=== PATIENT | female | born 2005 | race Two or more races ===

== ENCOUNTER 2024-12-27 23:01 | Emergency (ER) | payer OTHER ==
[~2024-12-27] VITALS: Ht 180.3 cm; Wt 44.5 kg
[~2024-12-27 23:01] MED LIST: KEPPRA500 MG; MACRODANTIN100 M1 PO; ONDANSETRON ODT8 MG PO; PRENATAL
[2024-12-27 23:33] VITALS: BP 104/64; O2SAT 100
[2024-12-27] MEDS ORDERED: PRENATABS RX T1 EACH (23:35)
[2024-12-27] MEDS ORDERED: ACETAMINOPHEN 500 MG GEL..CAP PO STA (23:58)
[2024-12-28] MEDS ORDERED: RINGERS SOLUTION,LACTATED 1,000 ML IV ONE (00:45)
[2024-12-28 01:53] LABS: BASO % 0.3 % (0.1-1.2); EOS # 0.01 (0.04-0.54); EOS % 0.2 % (0.7-7.0); LYMPH # 1.75 (1.18-3.74); LYMPH % 28.9 % (19.3-53.1); MEAN PLATELET VOLUME 9.50 fl (9.4-12.4); MONO # 0.34 (0.24-0.82); MONO % 5.6 % (4.7-12.5); NEUT # 3.93 (1.56-6.13); NEUT % 64.8 % (34.0-71.1); RED CELL DISTRIBUTION WIDTH 12.5 % (11.6-14.4)
[2024-12-28 02:03] LABS: INR 1.09
[2024-12-28 02:25] LABS: BUN CREA RATIO 11.0 (7.0-25.0); CREATININE SERUM 0.62 mg/dL (0.55-1.02); GFR 121.51; GLUCOSE FASTING 98.0 mg/dL (65-100); OSMOLALITY SERUM 281.0 MOSM/KG (275-295)
[2024-12-28 02:41] LABS: HCG QUANTITATIVE 47285.0 mUI/mL (1-3)
[2024-12-28 03:47] LABS: URINE APPEARANCE Cloudy; URINE BILIRRUBIN Negative (NEGATIVE); URINE BLOOD Negative; URINE COLOR Yellow; URINE GLUCOSE Negative (NEGATIVE); URINE KETONE Negative (NEGATIVE); URINE LEUKOCYTE Large; URINE NITRATE Negative; URINE PROTEIN Trace (NEGATIVE); URINE UROBILINOGEN 0.2 E.U./dl
[2024-12-28 03:50] LABS: URINE BACTERIA 6681.4 uL (0.0-1933); URINE EPITHELIAL CELLS 116.4 uL (0.0-38.8); URINE WBC 247.5 uL (0.0-23.2)
[2024-12-28 04:35] LABS: URINE CAST 0.58 uL (0.0-1.40); URINE MUCUS MODERATE; URINE RBC 1.9 uL (0.0-20.8)
[2024-12-28 04:36] LABS: URINE YEAST FEW /hpf
[2024-12-28] MEDS ORDERED: CEFTRIAXONE SODIUM 1,000 MG VIAL IV STA (05:44)
[2024-12-28] MEDS ORDERED: CEPHALEXIN500 MG PO (05:54)
== END 2024-12-28 06:12 ==
LOC: ER
PROVIDERS: General Practice
DX: O20.8 Other hemorrhage in early pregnancy (principal); Z3A.15 15 weeks gestation of pregnancy; Z91.040 Latex allergy status; Z88.8 Allergy status to other drugs, medicaments and biological substances